=== PATIENT | female | born 1960 | race Caucasian/White ===

== ENCOUNTER 2019-05-28 06:54 | Emergency (ER) | payer BC ==
--- NOTE | 2019-05-28 07:17 | ED Physician Documentation ---
Skin Rash - HISTORIAN Historian: patient, spouse - HPI Chief Complaint: Skin Rash Additional Information: Patient is a 59 year old female who presents to the ER with spouse. Patient states that she woke up this morning around 04:00. Patient states her left foot is swollen with a red area just distal to the 2nd and 3rd toes (small area). Patient hasn't taken anything OTC for pain. Onset: hours Timing: still present Duration: persistent since Location: LLE Quality: painful Identified Cause?: No When Did Symptoms Start: 05/28/19 Where: home Context: Medication Exposure: none Context: Food Exposure: none Further Comments: no - ROS CONST: none CVS/RESP: none EYES/ENT: none GI/: none MS/SKIN/LYMPH: none NEURO/PSYCH: none - PAST HX Past History: other (fibromyalgia, GERD, HTN) Other History: none Surgeries/Procedures: Yes (appy, choly, hyst, hernia) Immunizations: UTD Allergies/Adverse Reactions: Allergies Allergy/AdvReac Type Severity Reaction Status Date / Time chamomile flower Allergy Intermediate Itchy Skin Verified 05/28/19 07:10 [chamomile franklin] erythromycin base Allergy Intermediate Chest Pain Verified 05/28/19 07:10 [Erythromycin Base] Home Medications: Ambulatory Orders Medication Instructions Recorded Calcium [Natural Calcium] 500 mg PO D 03/03/13 Cyanocobalamin (Vitamin B-12) 50 mcg PO WEEKLY AT 0600 03/03/13 [Vitamin B-12] Cyclobenzaprine HCl [Flexeril] 10 mg PO D 03/03/13 Lisinopril [Prinivil] 5 mg PO QD 03/03/13 Methocarbamol 500 mg PO Q6 PRN 05/28/19 Sulfamethoxazole/Trimethoprim 1 each PO BID #14 tab 05/28/19 [Bactrim Ds] - SOCIAL HX Smoking History: non-smoker Alcohol Use: rarely Drug Use: none - FAMILY HX Family History: none - VITAL SIGNS Vital Signs: Vital Signs Temp Pulse Resp BP Pulse Ox 97.5 F L 66 19 161/91 99 05/28/19 07:21 05/28/19 07:21 05/28/19 07:21 05/28/19 07:21 05/28/19 07:21 - REVIEWED ASSESSMENTS Nursing Assessment Reviewed: Yes Vitals Reviewed: Yes Skin Rash Physical Exam - EXAM General Appearance: alert, mild distress Skin: warm,dry, other (small reddened area to the left foot) Location: extremities (Left foot) Character: fine Symptoms: warmth, tenderness Extremities: nml ROM EENT: eyes nml inspection, lips nml, gums nml, pharynx nml Neck: trachea midline Respiratory: breath sounds normal CVS: heart sounds nml Neuro/Psych: oriented x3, CN's nml as tested, motor nml, sensation nml, mood/affect nml Discharge Clincal Impression: Cellulitis of foot, left Prescriptions: Sulfamethoxazole/Trimethoprim [Bactrim Ds] 1 each PO BID #14 tab Referrals: Primary Doctor,No [Primary Care Provider] - 2 Days Additional Instructions: Take Bactrim 1 tab by mouth twice a day for 7 days Elevate affected extremity and Ice May use Naproxen for discomfort Follow up with PCP next week for re-evaluation Condition: Good Disposition: 01 HOME, SELF-CARE Decision to Admit: NO Decision Time: 07:34
[2019-05-28 07:29] VITALS: BP 132/68
== END 2019-05-28 07:21 | disposition home or self-care (01) ==
LOC: ED 06:54
DX: L03.116 Cellulitis of left lower limb (principal)
CPT/HCPCS: 99283; 99284